=== PATIENT | male | born 1990 | race Caucasian/White ===

== ENCOUNTER 2019-11-29 09:01 | Outpatient (RCR) | payer MEDICAID, SELFPAY ==
--- NOTE | 2019-12-26 13:22 | MHC.PT.DC ---
[facility] [place] [facility] [place] [facility] [place] Office [address] Yany Moraes [address] [facility] [phone] F: [phone] F: [phone] F: [phone] F: [phone] Physical Therapy Discharge Report Diagnosis: Neck Pain Date of Surgery: n/a Date of Evaluation: 09/08/19 Date of Discharge: Treatments to Date: 15 Cancellations to Date: 1 No Shows to Date: 0 Discharge Status: Achieved Goals Improved Function Independent with [facility] Discharge Summary: Pt progressed well over the course of skilled PT making progress on impairments and functional limitations resulting in an improved quality of life. Pt is I with [facility] and appropriate to d/c to [facility] at this time. Electronically signed by: Bassam Benavidez, PT Please sign and return to therapist. Thank you for your referral.
== END 2019-12-26 13:22 | disposition home or self-care (01) ==
LOC: HO.PTCHIC 09:01
PROVIDERS: PCP Internal Medicine; Visit Provider Internal Medicine
DX: M54.2 Cervicalgia (principal)
CPT/HCPCS: 97110